=== PATIENT | female | born 1965 | race Caucasian/White ===

== ENCOUNTER 2018-08-17 16:24 | Emergency (ER) | payer MEDICAID ==
[~2018-08-17] VITALS: Ht 157.5 cm; Wt 69.0 kg
[~2018-08-17 16:24] MED LIST: ALPR-623 PO; FLUO20CA39 PO
[2018-08-17 16:34] VITALS: BP 145/82
[2018-08-17] MEDS ORDERED: ACET-3067 PO (17:18)
== END 2018-08-17 17:41 | disposition home or self-care (01) ==
LOC: ER 16:25
DX: M25.562 Pain in left knee (principal); Z91.013 Allergy to seafood; Z91.041 Radiographic dye allergy status; Z79.899 Other long term (current) drug therapy; W19.XXXA Unspecified fall, initial encounter; Y93.89 Activity, other specified; Y92.89 Other specified places as the place of occurrence of the external cause; Y99.8 Other external cause status
CPT/HCPCS: 73564; 99284

== ENCOUNTER 2019-03-04 09:19 | Emergency (ER) | payer MEDICAID ==
[~2019-03-04] VITALS: Ht 157.5 cm; Wt 65.9 kg
[2019-03-04] MEDS ORDERED: AZIT250T PO (10:00)
[2019-03-04] MEDS ORDERED: GUAI120L55 PO (10:00)
[2019-03-04 10:10] VITALS: BP 132/108
== END 2019-03-04 10:07 | disposition home or self-care (01) ==
LOC: ER 09:21
DX: J20.9 Acute bronchitis, unspecified (principal); E07.9 Disorder of thyroid, unspecified; Z91.013 Allergy to seafood; Z79.2 Long term (current) use of antibiotics; Z79.899 Other long term (current) drug therapy
CPT/HCPCS: 71045; 99283

== ENCOUNTER 2019-07-10 18:04 | Emergency (ER) | payer MEDICAID ==
[~2019-07-10] VITALS: Ht 157.5 cm; Wt 63.6 kg
[~2019-07-10 18:04] MED LIST changes: +GUAI120L55 PO
[2019-07-10 18:44] LABS: BASOPHILS # (AUTO) 0.1 X10'3 (0-0.2); BASOPHILS % (AUTO) 1.1 % (0-1); EOSINOPHILS % (AUTO) 0.2 % (0-6); HEMATOCRIT 39.8 % (35.0-45.0); HEMOGLOBIN 13.9 g/dl (12.0-16.0); LYMPHOCYTES # (AUTO) 2.2 X10'3 (1.1-4.8); LYMPHOCYTES % (AUTO) 25.9 % (21-51); MEAN CORPUSCULAR HEMOGLOBIN 32.6 PG (27.0-31.0); MEAN CORPUSCULAR HGB CONC 34.9 g/dL (33.0-36.5); MEAN CORPUSCULAR VOLUME 93.4 FL (78-98); MEAN PLATELET VOLUME 6.8 FL (7.4-10.4); MONOCYTES # (AUTO) 0.5 X10'3 (0-0.9); MONOCYTES % (AUTO) 5.6 % (2-12); NEUTROPHILS # (AUTO) 5.6 X10'3 (1.8-7.7); NEUTROPHILS % (AUTO) 67.2 % (42-75); PLATELET COUNT 288 X10'3 (140-440); RED BLOOD COUNT 4.26 X10'6 (4.20-5.60); RED CELL DISTRIBUTION WIDTH 13.5 % (11.5-14.5); WHITE BLOOD COUNT 8.4 X10'3 (4.5-11.0)
[2019-07-10 18:56] LABS: ALANINE AMINOTRANSFERASE 35 U/L (12-78); ALKALINE PHOSPHATASE 110 IU/L (46-116); AMYLASE 67 U/L (25-115); ANION GAP 12 (8-16); ASPARTATE AMINO TRANSFERASE 36 U/L (10-37); BILIRUBIN,TOTAL 0.6 MG/DL (0.1-1.0); BLOOD UREA NITROGEN 13 MG/DL (7-18); BUN/CREATININE RATIO 18.1 (6.6-38.0); CALCIUM 9.4 MG/DL (8.5-10.1); CHLORIDE 88 MMOL/L (99-107); CREATININE 0.72 MG/DL (0.40-0.90); GLUCOSE 154 MG/DL (70-104); LIPASE 76 U/L (73-393); POTASSIUM 5.1 MMOL/L (3.5-5.1); SODIUM 127 MMOL/L (135-145); TOTAL CARBON DIOXIDE 27.1 MMOL/L (24-32); eGFR 84 ML/MIN
[2019-07-10] MEDS ORDERED: ondansetron/PF 4mg/2ml inj IV ONE (19:00)
[2019-07-10] MEDS ORDERED: dicyclomine 10 MG capsule PO ONE (19:00)
[2019-07-10] MEDS ORDERED: normal saline 1000ML IV soln IVB ONE ×2 (19:00→20:30)
[2019-07-10] MEDS ORDERED: ketorolac tromethamine 15mg/ml inj. IV ONE (19:40)
[2019-07-10 19:50] LABS: CLARITY,URINE CLEAR (Clear); COLOR,URINE STRAW (Yellow); GLUCOSE, URINE NEGATIVE (Neg); KETONES,URINE TRACE mg/dl (Neg); LEUKOCYTE ESTERASE ,URINE NEGATIVE (Neg); NITRITES, URINE NEGATIVE (Neg); OCCULT BLOOD,URINE TRACE-INTACT (Neg); PH,URINE 6.5 (4.8-8.0); PROTEIN,URINE NEGATIVE (Neg); UROBILINOGEN,URINE 0.2 E.U/dL (0.2-1.0)
[2019-07-10 20:03] LABS: UA COLLECTION TYPE NON-SPECIFIED
[2019-07-10 20:04] LABS: BACTERIA,URINE NONE SEEN /HPF (Neg); RBC,URINE 0-2 /HPF (0-2); SQUAMOUS EPITHELIAL CELL,UR FEW /LPF (FEW); WBC,URINE NONE SEEN /HPF (0-4)
[2019-07-10] MEDS ORDERED: ONDA4TAB6 PO (21:33)
[2019-07-10 21:45] VITALS: BP 141/81
== END 2019-07-10 21:40 | disposition home or self-care (01) ==
LOC: ER 18:05
DX: R11.2 Nausea with vomiting, unspecified (principal); R19.7 Diarrhea, unspecified; R51 Headache; F10.99 Alcohol use, unspecified with unspecified alcohol-induced disorder; R79.1 Abnormal coagulation profile; Z91.013 Allergy to seafood; Z79.899 Other long term (current) drug therapy; Y90.9 Presence of alcohol in blood, level not specified
CPT/HCPCS: 36415; 80053; 81001; 82150; 83690; 85025; 85610; 87502; 87503; 96361; 96374; 96375; 99284; J1885; J2405; J7030

== ENCOUNTER 2019-10-10 15:54 | Emergency (ER) | payer MEDICAID ==
[~2019-10-10] VITALS: Ht 157.5 cm; Wt 71.4 kg
[~2019-10-10 15:54] MED LIST changes: +ONDA4TAB6 PO
[2019-10-10 15:58] VITALS: BP 161/84
[2019-10-10] MEDS ORDERED: CYCL-1 PO (16:33)
[2019-10-10] MEDS ORDERED: TRAM50TA2 PO (16:33)
[2019-10-10] MEDS ORDERED: ketorolac trometh inj. 60 MG/2 ML VIAL IM ONE (16:35)
== END 2019-10-10 17:02 | disposition home or self-care (01) ==
LOC: ER 15:54
DX: M54.42 Lumbago with sciatica, left side (principal); M19.90 Unspecified osteoarthritis, unspecified site; F10.99 Alcohol use, unspecified with unspecified alcohol-induced disorder; Z91.013 Allergy to seafood; Z79.899 Other long term (current) drug therapy; W00.0XXA Fall on same level due to ice and snow, initial encounter; Y93.89 Activity, other specified; Y92.89 Other specified places as the place of occurrence of the external cause; Y99.8 Other external cause status; Y90.9 Presence of alcohol in blood, level not specified
CPT/HCPCS: 72100; 96372; 99283; J1885

== ENCOUNTER 2019-12-20 05:42 | Inpatient (IN) | payer MEDICAID ==
[~2019-12-20] VITALS: Ht 157.5 cm; Wt 67.7 kg
[~2019-12-20 05:42] MED LIST changes: +CYCL-1 PO
--- NOTE | 2019-12-20 05:45 | NUR ---
LABS DRAWN AND SENT TO LAB
[2019-12-20 06:09] LABS: BASOPHILS # (AUTO) 0.1 X10'3 (0-0.2); BASOPHILS % (AUTO) 0.7 % (0-1); EOSINOPHILS % (AUTO) 0.1 % (0-6); HEMATOCRIT 42.1 % (35.0-45.0); HEMOGLOBIN 14.3 g/dl (12.0-16.0); LYMPHOCYTES # (AUTO) 1.8 X10'3 (1.1-4.8); LYMPHOCYTES % (AUTO) 16.1 % (21-51); MEAN CORPUSCULAR HEMOGLOBIN 30.9 PG (27.0-31.0); MEAN CORPUSCULAR VOLUME 90.8 FL (78-98); MEAN PLATELET VOLUME 7.4 FL (7.4-10.4); MONOCYTES # (AUTO) 0.3 X10'3 (0-0.9); MONOCYTES % (AUTO) 2.8 % (2-12); NEUTROPHILS # (AUTO) 8.9 X10'3 (1.8-7.7); NEUTROPHILS % (AUTO) 80.3 % (42-75); PLATELET COUNT 334 X10'3 (140-440); RED BLOOD COUNT 4.64 X10'6 (4.20-5.60); RED CELL DISTRIBUTION WIDTH 13.6 % (11.5-14.5)
[2019-12-20 06:09] LABS: CLARITY,URINE CLOUDY (Clear); COLOR,URINE YELLOW (Yellow); GLUCOSE, URINE NEGATIVE (Neg); KETONES,URINE NEGATIVE (Neg); LEUKOCYTE ESTERASE ,URINE NEGATIVE (Neg); NITRITES, URINE NEGATIVE (Neg); OCCULT BLOOD,URINE SMALL (Neg); PH,URINE 5.5 (4.8-8.0); PROTEIN,URINE 100 mg/dl (Neg); UROBILINOGEN,URINE 0.2 E.U/dL (0.2-1.0)
[2019-12-20 06:10] LABS: UA COLLECTION TYPE CLN CATCH MIDSTREAM
[2019-12-20] MEDS ORDERED: normal saline 1000ml 1,000 ML IV ONE (06:15)
[2019-12-20 06:19] LABS: HYALINE CASTS >30 /LPF (NEGATIVE); SQUAMOUS EPITHELIAL CELL,UR MANY /LPF (FEW)
[2019-12-20] MEDS ORDERED: normal saline 1000ML IV soln IVB ONE (06:20)
[2019-12-20] MEDS ORDERED: ondansetron/PF 4mg/2ml inj IV ONE (06:20)
[2019-12-20 06:21] LABS: FINE GRANULAR CAST >30 /LPF (NEGATIVE); TRANSITIONAL EPI CELLS,URINE MODERATE /HPF
[2019-12-20 06:23] LABS: BACTERIA,URINE 2+ /HPF (Neg); RBC,URINE 0-2 /HPF (0-2); WBC,URINE 0-4 /HPF (0-4)
[2019-12-20 06:27] LABS: ALANINE AMINOTRANSFERASE 27 U/L (12-78); ALBUMIN 4.3 G/DL (3.4-5.0); ALKALINE PHOSPHATASE 98 IU/L (46-116); ANION GAP 15 (8-16); ASPARTATE AMINO TRANSFERASE 33 U/L (10-37); BILIRUBIN,TOTAL 0.4 MG/DL (0.1-1.0); BLOOD UREA NITROGEN 5 MG/DL (7-18); BUN/CREATININE RATIO 6.3 (6.6-38.0); CALCIUM 9.1 MG/DL (8.5-10.1); CHLORIDE 91 MMOL/L (99-107); GLUCOSE 113 MG/DL (70-104); LIPASE 506 U/L (73-393); POTASSIUM 4.1 MMOL/L (3.5-5.1); SODIUM 129 MMOL/L (135-145); TOTAL CARBON DIOXIDE 22.6 MMOL/L (24-32); TOTAL PROTEIN 8.5 G/DL (6.4-8.2); eGFR 74 ML/MIN
[2019-12-20] MEDS ORDERED: pantoprazole 40 MG vial IV ONE (06:30)
[2019-12-20] MEDS: morphine 4 MG/ML inj SYRINge IV PRN ×2 (06:39→07:14)
[2019-12-20] MEDS ORDERED: diphenhydrAMINE 50 mg/ml inj IV ONE (07:05)
[2019-12-20] MEDS ORDERED: haloperidol lactate 5mg/ml inj IM ONE (07:05)
[2019-12-20] MEDS ORDERED: cyanocobalamin 1,000 mcg/ml inj IM SCH (08:00)
[2019-12-20] MEDS ORDERED: iohexol 350MG/ML 100ml bottle IV ONE (09:05)
[2019-12-20] MEDS ORDERED: acetaminophen 325mg tablet PO STA (09:08)
[2019-12-20] MEDS ORDERED: methylPREDNISolone sod succ 125mg/2ml vial IV ONE (09:10)
[2019-12-20 10:23] LABS: D-DIMER 0.42 MG/L FEU (0-0.50)
--- NOTE | 2019-12-20 10:40 | NUR ---
Reported to MD Atwood pts HR [id number] and temp now 99.1
--- NOTE | 2019-12-20 11:20 | NUR ---
Received V/O from Dr. Atwood for fluid bolus 1 L NS x 1 now, fluids currently infusing.
[2019-12-20] MEDS ORDERED: SERT25TA PO (11:43)
[2019-12-20] MEDS ORDERED: morphine 2 MG/ML inj. syringe IV PRN ×2 (11:50)
[2019-12-20] MEDS ORDERED: HYDROcodone/acetaminophen 5mg/325mg tablet PO PRN (11:50)
[2019-12-20] MEDS ORDERED: mag hydrox/Alum hydrox/simeth 30ml oral suspension PO PRN (11:50)
[2019-12-20] MEDS ORDERED: ondansetron/PF 4mg/2ml inj IV PRN (11:50)
[2019-12-20] MEDS ORDERED: metoclopramide 5 mg/ml inj IV PRN (11:50)
[2019-12-20] MEDS ORDERED: acetaminophen 325mg tablet PO PRN ×2 (11:50)
[2019-12-20] MEDS ORDERED: magnesium hydroxide 30ml (MOM) UD suspension PO PRN (11:50)
[2019-12-20] MEDS ORDERED: HYDROcodone/acetaminophen 10/325mg tab PO PRN (11:50)
--- NOTE | 2019-12-20 12:58 | NUR ---
Called hospitalist Dr. Alvarado and reported pts HR [id number]. Pt to have repeat EKG and verify ST. If EKG confirms sinus tach, no further orders to be received.
[2019-12-20] MEDS ORDERED: ALPR0.5T9 PO (13:12)
[2019-12-20] MEDS ORDERED: SERT50TA10 PO (13:12)
[2019-12-20] MEDS ORDERED: CYAN10007 IM (13:12)
[2019-12-20] MEDS ORDERED: IBUP-1986 PO (13:12)
[2019-12-20] MEDS ORDERED: ALBU8.5H8 IH (13:13)
--- NOTE | 2019-12-20 14:50 | NUR ---
Patient in room ED 15. I have received report from CAMMY Vanessa and had the opportunity to ask questions and assume patient care.
--- NOTE | 2019-12-20 15:15 | NUR ---
Pt arrived to surgical floor via [facility]
[2019-12-20 15:33] VITALS: BP 170/89
[2019-12-20] MEDS: dextrose 5%-1/2 normal saline 1,000 ML IV SCH ×2 (15:49→23:20)
--- NOTE | 2019-12-20 16:31 | NUR ---
Notified hospitalist of pt's elevated heart rate of 136. Orders received to redraw lactic acid.
[2019-12-20] MEDS ORDERED: ibuprofen 200mg tablet PO PRN (18:00)
[2019-12-20] MEDS ORDERED: non-formulary drug (Ibuprofen 1 TAB) PO PRN (18:10)
[2019-12-20] MEDS ORDERED: ALPRAZolam 0.5mg tablet PO PRN (18:10)
[2019-12-20 18:30] VITALS: BP 150/91
--- NOTE | 2019-12-20 18:30 | NUR ---
Problems reprioritized. Patient report given, questions answered & plan of care reviewed with CAMMY Cardenas.
[2019-12-20] MEDS ORDERED: albuterol 2.5 MG/3 ML nebule NEB PRN (18:45)
[2019-12-21] VITALS: BP 155/85
[2019-12-21 05:11] LABS: BASOPHILS # (AUTO) 0.1 X10'3 (0-0.2); BASOPHILS % (AUTO) 0.9 % (0-1); EOSINOPHILS % (AUTO) 0 % (0-6); HEMATOCRIT 34.8 % (35.0-45.0); LYMPHOCYTES # (AUTO) 1.7 X10'3 (1.1-4.8); MEAN CORPUSCULAR HGB CONC 34.5 g/dL (33.0-36.5); MEAN CORPUSCULAR VOLUME 92.6 FL (78-98); MEAN PLATELET VOLUME 7.8 FL (7.4-10.4); MONOCYTES % (AUTO) 12.8 % (2-12); NEUTROPHILS # (AUTO) 4.9 X10'3 (1.8-7.7); NEUTROPHILS % (AUTO) 64.3 % (42-75); PLATELET COUNT 251 X10'3 (140-440); RED BLOOD COUNT 3.76 X10'6 (4.20-5.60); RED CELL DISTRIBUTION WIDTH 13.9 % (11.5-14.5); WHITE BLOOD COUNT 7.6 X10'3 (4.5-11.0)
[2019-12-21 05:35] LABS: ALANINE AMINOTRANSFERASE 26 U/L (12-78); ALBUMIN 3.3 G/DL (3.4-5.0); ALBUMIN/GLOBULIN RATIO 0.9 (1.1-1.5); ALKALINE PHOSPHATASE 74 IU/L (46-116); ANION GAP 8 (8-16); ASPARTATE AMINO TRANSFERASE 31 U/L (10-37); BILIRUBIN,TOTAL 0.6 MG/DL (0.1-1.0); BLOOD UREA NITROGEN 7 MG/DL (7-18); BUN/CREATININE RATIO 10.8 (6.6-38.0); CHLORIDE 106 MMOL/L (99-107); CREATININE 0.65 MG/DL (0.40-0.90); GLUCOSE 125 MG/DL (70-104); POTASSIUM 3.9 MMOL/L (3.5-5.1); SODIUM 142 MMOL/L (135-145); TOTAL CARBON DIOXIDE 27.9 MMOL/L (24-32); TOTAL PROTEIN 6.9 G/DL (6.4-8.2); eGFR > 90 ML/MIN
--- NOTE | 2019-12-21 06:11 | NUR ---
Patient in room [facility]. I have received report from shar payne and had the opportunity to ask questions and assume patient care.
--- NOTE | 2019-12-21 06:38 | NUR ---
Problems reprioritized. Patient report given, questions answered & plan of care reviewed with MILY. Addendum: 12/21/19 at 0639 by Rylan Shah RN Amended: Links added.
--- NOTE | 2019-12-21 06:50 | NUR ---
Patient in room [facility]. I have received report from Ronald CHAWLA and had the opportunity to ask questions and assume patient care.
[2019-12-21 08:00] VITALS: BP 146/86
[2019-12-21] MEDS ORDERED: sertraline 50mg tablet PO SCH (08:00)
[2019-12-21] MEDS ORDERED: cyanocobalamin 1,000 mcg/ml inj IM SCH (08:00)
[2019-12-21] MEDS: dextrose 5%-1/2 normal saline 1,000 ML IV SCH (08:38)
[2019-12-21] MEDS ORDERED: pneumococcal 23-VAL P-sac vacc 25 mcg/0.5ml vial IMVAC ONE (09:00)
[2019-12-21 11:21] LABS: C DIFF ANTIGEN NEGATIVE (NEGATIVE); C DIFF SPECIMEN=DIARRHEA? ACCEPTABLE; C DIFFICILE TOXINS A&B NEGATIVE (Neg)
--- NOTE | 2019-12-21 12:00 | NUR ---
Patient in room [facility]. I have received report from Bere oCrmier and had the opportunity to ask questions and assume patient care.
--- NOTE | 2019-12-21 12:06 | NUR ---
Student documentation: I have reviewed all interventions, assessments performed and documented by Bere HART
--- NOTE | 2019-12-21 12:07 | NUR ---
Student Medication Administration: all medication were reviewed, dispensed, administered and documented per hospital policy by Bere MOHAN
--- NOTE | 2019-12-21 14:28 | NUR ---
Patient had all discharge instructions done with Dr. Harvey and Dr. Luna. Patient was stable and discharged home with family member. Addendum: 12/21/19 at [address]-NU Amended: Links added. Addendum: 12/21/19 at 1442 by Mónica VELÁSQUEZ-NU DELETE DISCHARGE NOTE, WRONG PATIENT DOCUMENTED ON.
--- NOTE | 2019-12-21 16:19 | NUR ---
patient seen by Dr Armstrong is for discharge. All instructions given to patient per nursing center tutor maría , supervised by this staff member. patient appears stable for discharge. DC home via private car with family member to home.
== END 2019-12-21 15:59 | disposition home or self-care (01) | DRG 249 ==
LOC: ER 05:42 → ED HOLD 11:47 → SUR 3N 15:19 → OBSVTOIN 12-21 10:15
PROVIDERS: ADMIT Internal Medicine; ATTEND Family Medicine
PROC: 3E0234Z Introduction of Serum, Toxoid and Vaccine into Muscle, Percutaneous Approach (ICD-10-PCS; principal; 2019-12-21)
DX: K52.9 Noninfective gastroenteritis and colitis, unspecified (principal); E87.2 Acidosis; E86.0 Dehydration; F32.9 Major depressive disorder, single episode, unspecified; F41.9 Anxiety disorder, unspecified; J45.909 Unspecified asthma, uncomplicated; Z79.899 Other long term (current) drug therapy; Z98.84 Bariatric surgery status; Z88.8 Allergy status to other drugs, medicaments and biological substances; Z91.013 Allergy to seafood; R00.0 Tachycardia, unspecified; Z23 Encounter for immunization
CPT/HCPCS: 36415; 71045; 74176; 80053; 81001; 83605; 83690; 84145; 85025; 85379; 85610; 87040; 87324; 87449; 90732; 93005; 94760; 96361; 96372; 96374; 96375; 96376; 99285; C9113; G0378; J1200; J1630; J2270; J2405; J2930; J3420; J7030; Q9967

== ENCOUNTER 2022-10-21 23:39 | Emergency (ER) | payer MEDICAID ==
[~2022-10-21] VITALS: Ht 157.5 cm; Wt 45.8 kg
[~2022-10-21 23:39] MED LIST changes: +ALBU8.5H17 IH; -ALPR-623 PO; +CYAN10007 IM; -CYCL-1 PO; +DULO30CA52 PO; -FLUO20CA39 PO; -GUAI120L55 PO; +HYDR-3686 PO; +IBUP-1986 PO; -ONDA4TAB6 PO; +TRAZ-251 PO
[2022-10-21 23:46] VITALS: BP 101/66
[2022-10-22] MEDS ORDERED: SULF1TAB49 PO (16:25)
[2022-10-22] MEDS ORDERED: HYDR-3965 PO (16:25)
== END 2022-10-22 08:37 | disposition left against medical advice (07) ==
LOC: ER 23:40
DX: R22.32 Localized swelling, mass and lump, left upper limb (principal); M79.605 Pain in left leg; Z53.21 Procedure and treatment not carried out due to patient leaving prior to being seen by health care provider

== ENCOUNTER 2022-10-22 14:39 | Emergency (ER) | payer MEDICAID ==
[~2022-10-22] VITALS: Ht 157.5 cm; Wt 47.0 kg
[2022-10-22 15:02] VITALS: BP 130/77
[2022-10-22] MEDS ORDERED: HYDR-3965 PO (16:25)
[2022-10-22] MEDS ORDERED: SULF1TAB49 PO (16:25)
[2022-10-22] MEDS ORDERED: sulfamethoxazole/trimethoprim DS (800/160mg) tablet PO ONE (16:35)
[2022-10-22] MEDS ORDERED: HYDROcodone/acetaminophen 5mg/325mg tablet PO ONE (16:35)
== END 2022-10-22 16:50 | disposition home or self-care (01) ==
LOC: ER 14:40
DX: L02.512 Cutaneous abscess of left hand (principal)
CPT/HCPCS: 99283

== ENCOUNTER 2023-01-19 15:57 | Emergency (ER) | payer MEDICAID ==
[~2023-01-19] VITALS: Ht 157.5 cm; Wt 45.9 kg
[2023-01-19 16:23] VITALS: BP 143/90
[2023-01-19] MEDS ORDERED: NEOM10DR45 RIGHT EAR (16:40)
== END 2023-01-20 07:11 | disposition home or self-care (01) ==
LOC: ER 15:58
DX: H60.501 Unspecified acute noninfective otitis externa, right ear (principal); E03.9 Hypothyroidism, unspecified; Z88.8 Allergy status to other drugs, medicaments and biological substances; Z91.013 Allergy to seafood; Z79.899 Other long term (current) drug therapy
CPT/HCPCS: 99283

== ENCOUNTER 2023-02-04 17:54 | Emergency (ER) | payer MEDICAID ==
[~2023-02-04] VITALS: Ht 157.5 cm; Wt 47.8 kg
[~2023-02-04 17:54] MED LIST changes: +NEOM10DR45 RIGHT EAR
[2023-02-04 17:58] VITALS: BP 175/100
[2023-02-04] MEDS ORDERED: LIDOcaine 1% 30ml preserv. free vial IJ ONE ×2 (19:10)
[2023-02-04] MEDS ORDERED: bacitracin 15gm ointment TP ONE (19:10)
[2023-02-04] MEDS ORDERED: sulfamethoxazole/trimethoprim DS (800/160mg) tablet PO ONE (19:10)
[2023-02-04] MEDS ORDERED: SULF1TAB49 PO (19:11)
== END 2023-02-04 19:49 | disposition home or self-care (01) ==
LOC: ER 17:55
DX: S60.464A Insect bite (nonvenomous) of right ring finger, initial encounter (principal); Z88.8 Allergy status to other drugs, medicaments and biological substances; Z91.013 Allergy to seafood; W57.XXXA Bitten or stung by nonvenomous insect and other nonvenomous arthropods, initial encounter; Y93.89 Activity, other specified; Y92.89 Other specified places as the place of occurrence of the external cause; Y99.8 Other external cause status
CPT/HCPCS: 10060; 99283; 99284

== ENCOUNTER 2023-04-14 16:54 | Emergency (ER) | payer MEDICAID ==
[~2023-04-14] VITALS: Ht 167.6 cm; Wt 60.0 kg
[2023-04-14 17:02] VITALS: BP 136/92
[2023-04-14] MEDS ORDERED: acetaminophen 325mg tablet PO ONE (17:15)
--- NOTE | 2023-04-14 18:36 | NUR ---
pc to cristina to have le come to talk pt
== END 2023-04-14 19:57 | disposition home or self-care (01) ==
LOC: ER 16:55
DX: M25.551 Pain in right hip (principal); M19.90 Unspecified osteoarthritis, unspecified site; Z91.013 Allergy to seafood; Z91.041 Radiographic dye allergy status
CPT/HCPCS: 73502; 99283

== ENCOUNTER 2025-03-05 08:53 | Emergency (ER) | payer MEDICAID ==
[~2025-03-05] VITALS: Ht 154.9 cm; Wt 56.0 kg
[2025-03-05 08:58] VITALS: TEMP 96
--- NOTE | 2025-03-05 09:12 | Physician Documentation ---
History of Present Illness Chief Complaint: Abdominal Pain Stated Complaint: ABD PAIN Time Seen by MD: 09:06 Primary Medical Doctor: SAJI GARRISON Patient presents today for acute onset right lower quadrant abdominal pain nausea and vomiting. She also had episode of diarrhea this morning. Reviewed discharge summary May 2020 major depressive disorder self-harming behavior alcohol abuse Medication Reconciliation Allergies: Coded Allergies: Iodinated Contrast Media (Verified Allergy, Unknown, 04/14/23) Shellfish (Verified Allergy, Unknown, 04/14/23) Scheduled Cyanocobalamin (Vitamin B-12) (Cyanocobalamin Injection), 1 ML IM Q28D, (Reported) Duloxetine HCl (Duloxetine HCl), 30 MG PO DAILY Neomycin/Polymyxin B Sulf/Hc (Etzafrbn-Olxkmrbba-Cf Ear Susp), 4 DROP RIGHT EAR Q8H Scheduled PRN Albuterol Sulfate (Proair Hfa), 2 PUFFS IH Q4H PRN for SOB or wheezing, (Reported) Hydroxyzine Hcl* (Atarax*), 75 MG PO Q6H PRN for anxiety Ibuprofen (Ibuprofen), 1 TAB PO TIDWM PRN for pain, (Reported) Trazodone HCl (Trazodone HCl), 50 MG PO HS PRN for INSOMNIA Past Medical History Past Medical History: Peripheral Neuropathy, Diverticulitis, Thyroid (unspecified), Arthritis, Depression Past Surgical History: gastric bypass Patient History: FH: COPD (chronic obstructive pulmonary disease) FH: depression FH: diabetic complications FHx: cancer FHx: heart failure Alcohol Use: Occasionally Lives with: Family Lives In: Home Occupation: employed Review of Systems All Other Systems at this time: Reviewed and Negative Constitutional: Denies: fever Physical Exam Vital Signs: Temperature: 96.0, Source: Temporal, Heart Rate: 83, Respiratory Rate: 16, BP: 204/85, Pulse Oximetry: 96, Weight: 56.000 Physical Exam Uncomfortable Abdomen soft localized right lower quadrant tenderness no guarding no rebound Neuro awake alert oriented Skin pink warm dry Progress Progress Note 4:30 p.m. patient has had near resolution of her symptoms she is not want stay in the hospital in his requesting discharge Results/Orders Reviewed/noted all lab results: Yes Results/Orders Vital Signs 03/05/25 08:58 Temp 96.0 Pulse 83 Resp 16 B/P (MAP) 204/85 Pulse Ox 96 Re-Evaluation Re-Evaluation : Progress Labs independently interpreted show no leukocytosis no renal failure, UA without infection EKG/XRAY/CT/US/VASC/MRI CT : Impression I independently interpreted CT scan right-sided hydronephrosis and 5 mm urolithiasis no free fluid no free air Medical Decision Making Additional Comments Appendicitis, kidney stone, dissection Departure Disposition: HOME / SELF CARE / HOMELESS Impression: Primary Impression: Urolithiasis Qualified Codes: N20.1 - Calculus of ureter Additional Instructions: Please continue to drink plenty of fluids. Return to the emergency department if you develop fever. Follow up with Urology if you do not have resolution of your symptoms Referrals: JANN BERMAN MD Prescriptions Tamsulosin Hcl* (Flomax*) 0.4 Mg Cap.sr.24h 1 CAP PO DAILY for 14 Days, #14 CAP Prov: DEMARCUS ECHOLS MD 03/05/25 Oxycodone Hcl IR* (Oxycodone IR*) 5 Mg Tablet 1 TAB PO Q6H PRN for pain for 5 Days, #10 TAB Prov: DEMARCUS ECHOLS MD 03/05/25 Signature Scribe Signature: na Attestation: DEMARCUS Doe MD March 05, 2025 09:12
[2025-03-05] MEDS: OLANZapine **IM** 10 mg inj. IM ONE (09:23)
[2025-03-05 09:55] LABS: BASOPHILS # (AUTO) 0.1 X10'3 (0-0.2); BASOPHILS % (AUTO) 1.3 % (0-1); EOSINOPHILS # (AUTO) 0.1 X10'3 (0-0.9); EOSINOPHILS % (AUTO) 1.9 % (0-6); HEMATOCRIT 38.4 % (35.0-45.0); HEMOGLOBIN 12.7 g/dl (12.0-16.0); LYMPHOCYTES # (AUTO) 1.3 X10'3 (1.1-4.8); MEAN CORPUSCULAR HEMOGLOBIN 27.8 PG (27.0-31.0); MEAN CORPUSCULAR VOLUME 84.2 FL (78-98); MONOCYTES # (AUTO) 0.3 X10'3 (0-0.9); MONOCYTES % (AUTO) 5.5 % (2-12); NEUTROPHILS # (AUTO) 3.7 X10'3 (1.8-7.7); NEUTROPHILS % (AUTO) 67.3 % (42-75); PLATELET COUNT 264 X10'3 (140-440); RED BLOOD COUNT 4.55 X10'6 (4.20-5.60); RED CELL DISTRIBUTION WIDTH 14.2 % (11.5-14.5); WHITE BLOOD COUNT 5.5 X10'3 (4.5-11.0)
[2025-03-05 10:10] LABS: ALANINE AMINOTRANSFERASE 25 U/L (12-78); ALBUMIN 3.4 G/DL (3.4-5.0); ALBUMIN/GLOBULIN RATIO 0.9 (1.1-1.5); ALKALINE PHOSPHATASE 107 IU/L (46-116); ANION GAP 5 (8-16); BILIRUBIN,TOTAL 0.3 MG/DL (0.1-1.0); BLOOD UREA NITROGEN 17 MG/DL (7-18); BUN/CREATININE RATIO 32.1 (10.0-20.0); CALCIUM 8.8 MG/DL (8.5-10.1); CHLORIDE 103 MMOL/L (99-107); CREATININE 0.53 MG/DL (0.40-0.90); GLUCOSE 133 MG/DL (70-104); LIPASE 37 U/L (16-77); SODIUM 137 MMOL/L (135-145); TOTAL CARBON DIOXIDE 29.5 MMOL/L (24-32); TOTAL PROTEIN 7.1 G/DL (6.4-8.2); eCRCL 85 ML/MIN; eGFR > 90 ML/MIN
[2025-03-05 10:12] LABS: ASPARTATE AMINO TRANSFERASE 33 U/L (10-37); POTASSIUM 4.7 MMOL/L (3.5-5.1)
[2025-03-05 10:33] LABS: BILIRUBIN,URINE NEGATIVE (Neg); CLARITY,URINE CLEAR (Clear); COLOR,URINE STRAW (Yellow); GLUCOSE, URINE 100 mg/dl (Neg); KETONES,URINE NEGATIVE (Neg); LEUKOCYTE ESTERASE ,URINE NEGATIVE (Neg); NITRITES, URINE NEGATIVE (Neg); OCCULT BLOOD,URINE NEGATIVE (Neg); PH,URINE 7.5 (4.8-8.0); PROTEIN,URINE NEGATIVE (Neg); UROBILINOGEN,URINE 0.2 E.U/dL (0.2-1.0)
[2025-03-05 10:34] LABS: URINE HCG NEGATIVE (NEG)
[2025-03-05 10:43] LABS: UA COLLECTION TYPE URINAL
[2025-03-05] MEDS: morphine 4 MG/ML inj SYRINge IV ONE (10:52)
[2025-03-05] MEDS: ringers solution, lacted 1,000 ML IV ONE (10:52)
[2025-03-05] MEDS: diphenhydrAMINE 50 mg/ml inj IV ONE (10:59)
[2025-03-05] MEDS: methylPREDNISolone sod succ/PF 40mg inj. IV ONE (11:01)
[2025-03-05] MEDS: famotidine/PF 10 mg/ml inj IV ONE (11:06)
[2025-03-05] MEDS ORDERED: iohexol 300mg/ml 100ml inj. ONE (12:01)
--- NOTE | 2025-03-05 14:50 | RADIOLOGY REPORT ---
Procedure: CT CT ABDOMEN PELVIS W/ IV CONTRAST 03/05/2025 12:11 PM Indication: RLQ pain Comparison Study: None Technique: Axial images were obtained and reformatted in coronal and sagittal planes. All CT scans at this medical facility are performed using dose modulation techniques as appropriate to a performed e xam including the following: Automated exposure control was utilized; adjustment of the MA and/or KV according to patient size; and use of iterative reconstruction technique. CT Dose: CTDI volume is 11. 5 mGy. Dose-length product is 614 mGy*cm FINDINGS: Lower Chest: Unremarkable. Hepatobiliary: Unremarkable. Spleen: Unremarkable. Pancreas: Unremarkable. Adrenal Glands: Unremarkable. tract: Edematous right kidney. Moderate right hydronephrosis and hydroureter due to a 5 mm obstruc ting stone at the UVJ. Several subcentimeter nonobstructive right renal calculi are seen measuring up to 6 mm in the upper pole. Moderate right perinephric fat stranding. The urinary bladder is unremar kable. GI tract: The stomach is grossly normal in appearance. No evidence of small bowel obstruction. The la rge bowel is unremarkable. The appendix is not visualized. No inflammatory change is noted in the rig ht lower quadrant. Lymphatics: No mesenteric, retroperitoneal or periportal lymphadenopathy. Vasculature: The abdominal aorta is normal in caliber. Pelvic Organs: Unremarkable Bones/soft tissues: No acute abnormality. Mild chronic appearing depression of the superior endplate of height centrally and anteriorly without retropulsion. Multilevel degenerative disc disease and po sterior facet arthropathy of the lumbar spine noted. Other: None. IMPRESSION: 1.Moderate right hydronephrosis and hydroureter due to a 5 mm obstructing stone at the UVJ.
[2025-03-05] MEDS: tamsulosin 0.4mg capsule PO ONE (15:27)
[2025-03-05] MEDS ORDERED: TAMS-55 PO (16:51)
[2025-03-05] MEDS ORDERED: OXYC-658 PO (16:51)
[2025-03-05] MEDS ORDERED: ONDA-243 PO (16:55)
[2025-03-05 17:23] VITALS: BP 157/99; PULSE 98; RESP 15; O2SAT 99
[2025-03-06] MEDS ORDERED: OXYC-658 PO (10:26)
== END 2025-03-05 17:27 | disposition home or self-care (01) ==
LOC: ER 08:53
DX: N20.9 Urinary calculus, unspecified (principal); F32.A Depression, unspecified; M19.90 Unspecified osteoarthritis, unspecified site; Z88.8 Allergy status to other drugs, medicaments and biological substances; Z91.041 Radiographic dye allergy status; Z98.84 Bariatric surgery status
CPT/HCPCS: 36415; 74177; 80053; 81003; 81025; 83690; 85025; 96361; 96372; 96374; 96375; 99285; J1200; J2270; J2919; J3490; J7120; Q9967